=== PATIENT | female | born 1995 | race Caucasian/White ===

== ENCOUNTER 2018-12-25 11:23 | Emergency (ER) | payer SELFPAY ==
[2018-12-25 11:43] LABS: URINE APPEARANCE CLEAR; URINE BILIRUBIN NEGATIVE (NEGATIVE); URINE BLOOD NEGATIVE (NEGATIVE); URINE COLOR YELLOW; URINE GLUCOSE (UA) NEGATIVE (NEGATIVE); URINE KETONE NEGATIVE (NEGATIVE); URINE LEUKOCYTE ESTERASE NEGATIVE (NEGATIVE); URINE NITRITE NEGATIVE (NEGATIVE); URINE PROTEIN NEGATIVE (NEGATIVE); URINE UROBILINOGEN 0.2 E.U./dL (0.20 - 1.00)
[2018-12-25 11:47] LABS: HCG,QUALITATIVE URINE NEGATIVE (NEGATIVE)
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
[2018-12-25] MEDS: AZITHROMYCIN 500 MG TABLET PO ONE (12:42)
[2018-12-25] MEDS: CEFTRIAXONE 250 MG VIAL IM ONE (12:43)
[2018-12-26 23:18] LABS: GC SPECIMEN TYPE Cervix
== END 2018-12-25 13:12 | disposition home or self-care (01) ==
LOC: ER 11:23
DX: Z20.2 Contact with and (suspected) exposure to infections with a predominantly sexual mode of transmission (principal)
CPT/HCPCS: 99284 ×2; 81003; 81025; Q0111; J0696; 87210

== ENCOUNTER 2019-05-28 20:20 | Emergency (ER) | payer SELFPAY ==
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
[2019-05-28 21:02] LABS: URINE APPEARANCE CLOUDY; URINE BILIRUBIN NEGATIVE (NEGATIVE); URINE BLOOD MODERATE (NEGATIVE); URINE COLOR YELLOW; URINE GLUCOSE (UA) NEGATIVE (NEGATIVE); URINE KETONE NEGATIVE (NEGATIVE); URINE LEUKOCYTE ESTERASE NEGATIVE (NEGATIVE); URINE NITRITE NEGATIVE (NEGATIVE); URINE PROTEIN NEGATIVE (NEGATIVE); URINE UROBILINOGEN 0.2 E.U./dL (0.20 - 1.00)
[2019-05-28 21:15] LABS: URINE BACTERIA NONE SEEN; URINE EPITHELIAL CELLS 0 - 2 (FEW); URINE RBC 16 - 25 (NONE SEEN); URINE WBC NONE SEEN (0-2/hpf)
[2019-05-30 09:58] LABS: GC SPECIMEN TYPE Vaginal
== END 2019-05-28 21:46 | disposition home or self-care (01) ==
LOC: ER 20:20
DX: N93.9 Abnormal uterine and vaginal bleeding, unspecified (principal); F17.210 Nicotine dependence, cigarettes, uncomplicated
CPT/HCPCS: 81001; 84702; 86901; 87210; 99283